=== PATIENT | female | born 1995 | race African-American/Black ===

== ENCOUNTER 2018-04-26 00:10 | Inpatient (IN) | payer OTHER ==
[~2018-04-26] VITALS: Ht 162.6 cm; Wt 67.1 kg
[2018-04-26] VITALS (11 sets, daily range): BP systolic 93–112; BP diastolic 50–68
[2018-04-26 00:56] LABS: BASO # 0.1 x10^3/uL (0.0-0.2); BASO % 1 % (0-3); EOS % 0 % (0-3); HEMATOCRIT 38.5 % (36.0-47.0); HEMOGLOBIN 13.7 g/dL (12.0-15.5); LYMPH # 1.9 x10^3/uL (1.0-4.8); LYMPH % 16 % (24-48); MEAN CORPUSCULAR HEMOGLOBIN 32 pg (25-35); MEAN CORPUSCULAR HGB CONC 36 g/dL (31-37); MEAN CORPUSCULAR VOLUME 91 fL (79-100); MONO # 0.8 x10^3/uL (0.0-1.1); MONO % 7 % (0-9); NEUT # 9.2 x10^3uL (1.8-7.7); NEUT % 76 % (31-73); PLATELET COUNT 306 x10^3/uL (140-400); RED BLOOD COUNT 4.25 x10^6/uL (3.50-5.40); RED CELL DISTRIBUTION WIDTH 12.7 % (11.5-14.5); WHITE BLOOD COUNT 12.1 x10^3/uL (4.0-11.0)
[2018-04-26] MEDS ORDERED: IV NORMAL SALINE 1000ML BAG 1,000 ML IV SCH (01:00)
[2018-04-26 01:07] LABS: CREATININE 0.8 mg/dL (0.6-1.0); GFR 105.8; POTASSIUM 3.8 mmol/L (3.5-5.1)
[2018-04-26 01:13] LABS: ALBUMIN 3.9 g/dL (3.4-5.0); ALBUMIN/GLOBULIN RATIO 1.1 (1.0-1.7); TOTAL BILIRUBIN 0.4 mg/dL (0.2-1.0); TOTAL PROTEIN 7.4 g/dL (6.4-8.2)
--- NOTE | 2018-04-26 01:45 | PHYS DOC ---
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 Patient reportedly has been having intermittent pelvic pain with vaginal bleeding for the last 3 weeks and has only found out that she is tonight. Patient had an ultrasound over at [facility] demonstrating a right-sided pelvic mass measuring 2.7 x 2.4 x 2 cm. Physician at [facility] had consulted with Dr. Mera on for OB and Dr. Mera requested the patient come to the emergency room. Patient states that pain today has been constant and she rates it at a 6 out of 10. She denies any nausea , vomiting or diarrhea. She also denies any fever and has had no urinary discomfort. Review of Systems Review of Systems Constitutional: Denies fever or chills [] Respiratory: Denies cough or shortness of breath [] Cardiovascular: No additional information not addressed in HPI [] GI: Complains of right lower abdominal pain[] : Denies dysuria or hematuria [] All other systems were reviewed and found to be within normal limits, except as documented in this note. Current Medications Current Medications Current Medications Medications (Trade) Dose Ordered Sig/Darleen Start Time Stop Time Status Last Admin Dose Admin Sodium Chloride 1,000 ml @ 100 mls/hr Q10H 04/26/18 01:00 04/26/18 10:59 04/26/18 01:05 100 MLS/HR Allergies Allergies Allergies Coded Allergies Type Severity Reaction Last Updated Verified amoxicillin Allergy Intermediate 04/26/18 Yes Physical Exam Physical Exam Constitutional: Well developed, well nourished, no acute distress, non-toxic appearance. [] HENT: Normocephalic, atraumatic, bilateral external ears normal, oropharynx moist, no oral exudates, nose normal. [] Eyes: PERRLA, EOMI, conjunctiva normal, no discharge. [] Neck: Normal range of motion, no tenderness, supple. [] Cardiovascular: Regular rate and rhythm[] Lungs & Thorax: Bilateral breath sounds clear to auscultation [] Abdomen: Bowel sounds normal, soft, with right lower tenderness. [] Skin: Warm, dry, no erythema, no rash. [] Back: No tenderness, no CVA tenderness. [] Extremities: No tenderness, no cyanosis, no clubbing, ROM intact, no edema. [] Neurologic: Alert and oriented X 3, normal motor function, normal sensory function, no focal deficits noted. [] Psychologic: Affect normal, judgement normal, mood normal. [] Current Patient Data Vital Signs Vital Signs Date Time Temp Pulse Resp B/P (MAP) Pulse Ox O2 Delivery O2 Flow Rate FiO2 04/26/18 00:10 98.9 94 20 126/97 (107) 99 Room Air 98.9 Lab Values Laboratory Tests Test 04/26/18 00:42 White Blood Count 12.1 x10^3/uL (4.0-11.0) H Red Blood Count 4.25 x10^6/uL (3.50-5.40) Hemoglobin 13.7 g/dL (12.0-15.5) Hematocrit 38.5 % (36.0-47.0) Mean Corpuscular Volume 91 fL (79-100) Mean Corpuscular Hemoglobin 32 pg (25-35) Mean Corpuscular Hemoglobin Concent 36 g/dL (31-37) Red Cell Distribution Width 12.7 % (11.5-14.5) Platelet Count 306 x10^3/uL (140-400) Neutrophils (%) (Auto) 76 % (31-73) H Lymphocytes (%) (Auto) 16 % (24-48) L Monocytes (%) (Auto) 7 % (0-9) Eosinophils (%) (Auto) 0 % (0-3) Basophils (%) (Auto) 1 % (0-3) Neutrophils # (Auto) 9.2 x10^3uL (1.8-7.7) H Lymphocytes # (Auto) 1.9 x10^3/uL (1.0-4.8) Monocytes # (Auto) 0.8 x10^3/uL (0.0-1.1) Eosinophils # (Auto) 0.0 x10^3/uL (0.0-0.7) Basophils # (Auto) 0.1 x10^3/uL (0.0-0.2) Maternal Serum HCG Beta Subunit 524 mIU/mL (0-5) H Sodium Level 138 mmol/L (136-145) Potassium Level 3.8 mmol/L (3.5-5.1) Chloride Level 103 mmol/L (98-107) Carbon Dioxide Level 27 mmol/L (21-32) Anion Gap 8 (6-14) Blood Urea Nitrogen 9 mg/dL (7-20) Creatinine 0.8 mg/dL (0.6-1.0) Estimated GFR (Cockcroft-Gault) 105.8 BUN/Creatinine Ratio 11 (6-20) Glucose Level 87 mg/dL (70-99) Calcium Level 9.0 mg/dL (8.5-10.1) Total Bilirubin 0.4 mg/dL (0.2-1.0) Aspartate Amino Transferase (AST) 17 U/L (15-37) Alanine Aminotransferase (ALT) 19 U/L (14-59) Alkaline Phosphatase 50 U/L (46-116) Total Protein 7.4 g/dL (6.4-8.2) Albumin 3.9 g/dL (3.4-5.0) Albumin/Globulin Ratio 1.1 (1.0-1.7) Laboratory Tests 04/26/18 00:42 Laboratory Tests 04/26/18 00:42 EKG EKG [] Radiology/Procedures Radiology/Procedures [] Course & Med Decision Making Course & Med Decision Making Pertinent Labs and Imaging studies reviewed. (See chart for details) [] Dragon Disclaimer Dragon Disclaimer This electronic medical record was generated, in whole or in part, using a voice recognition dictation system. Departure Departure Impression: Primary Impression: Ectopic Disposition: ADMITTED INPATIENT Admitting Physician: Other (Dr. Mera) Condition: GOOD Referrals: GARRETT JOHNS MD (PCP) Problem Qualifiers Primary Impression: Ectopic Location of ectopic : unspecified location Intrauterine status: unspecified Qualified Codes: O00.90 - Unspecified ectopic without intrauterine ALVA COX Jr. DO Apr 26, 2018 01:45
[2018-04-26] MEDS ORDERED: MORPHINE SULFATE 2 MG/ML VIAL. IV PRN (02:15)
[2018-04-26] MEDS ORDERED: ONDANSETRON PF 4 MG/2 ML VIAL. IV PRN ×2 (02:15→09:45)
[2018-04-26] MEDS ORDERED: MIDAZOLAM HCL/PF 2 MG/2 ML VIAL. ONE (09:19)
[2018-04-26] MEDS ORDERED: GLYCOPYRROLATE 1 MG/5 ML VIAL. ONE (09:19)
[2018-04-26] MEDS ORDERED: SEVOFLURANE > 120 MINUTES. IH ONE (09:19)
[2018-04-26] MEDS ORDERED: fentaNYL PF VIAL 100 MCG/2 ML VIAL ONE (09:19)
[2018-04-26] MEDS ORDERED: NEOSTIGMINE METHYLSULFATE 5 MG/5 ML SYRINGE. ONE (09:19)
[2018-04-26] MEDS ORDERED: SEVOFLURANE 61 TO 120 MINUTES. IH ONE (09:19)
[2018-04-26] MEDS ORDERED: ROCURONIUM 50 MG/5 ML VIAL. ONE (09:20)
[2018-04-26] MEDS ORDERED: DEXAMETHASONE SOD PHOS 20 MG/5 ML VIAL. ONE (09:20)
[2018-04-26] MEDS ORDERED: ONDANSETRON PF 4 MG/2 ML VIAL. ONE (09:20)
[2018-04-26] MEDS ORDERED: PROPOFOL 20 ML IV ONE (09:20)
[2018-04-26] MEDS ORDERED: KETOROLAC 30 MG/ML INJ FOR OR. INJ ONE (09:20)
[2018-04-26] MEDS ORDERED: LIDOCAINE 2% PF Vial for OR 5 ML VIAL. ONE (09:20)
--- NOTE | 2018-04-26 09:44 | HP ---
ADMIT DATE: 04/26/2018 HISTORY OF PRESENT ILLNESS: This patient is a 23-year-old white female who is a 1, para 0, LMP unknown, has been receiving Depo shot for control and she has stopped it. At the present time, she does not know her last menstrual period, but she does have a positive test and hCG levels were high. She was transferred from [facility] outpatient clinic to [facility] and admitted for possible ectopic on the right side. The patient complaining of acute pain in the right lower quadrant and also has vaginal bleeding for about 10 days. PHYSICAL EXAMINATION: VITAL SIGNS: Being stable. HEAD, EYES, NOSE, THROAT: Within normal limits. LUNGS: Clear. HEART: Sounds regular sinus rhythm. BREASTS: No masses are palpable. ABDOMEN: Feels soft. PELVIC: Shows external genitalia being normal. Cervical os is closed. On bimanual exam, uterus feels normal size. Left adnexal area is clear. The right adnexal area has fullness and also tenderness noted. EXTREMITIES: No edema of feet. IMPRESSION: Right lower quadrant pain, rule out right side ectopic . PLAN: Laparotomy. The surgery is explained to the patient and the patient is willing for the operation at the present time. JOHN SAWANT MD DR: MYESHA/sandro JOB#: [id number] / [id number]
[2018-04-26] MEDS ORDERED: fentaNYL PF VIAL 100 MCG/2 ML VIAL IV PRN (09:45)
[2018-04-26] MEDS ORDERED: LIDOCAINE 1% PF 2 ML VIAL. ID PRN (09:45)
[2018-04-26] MEDS ORDERED: SUCCINYLCHOLINE 200 MG/10 ML VIAL. ONE (09:49)
[2018-04-26] MEDS ORDERED: CLINDAMYCIN 900MG PREMIX 0 ML IV ONE (09:59)
[2018-04-26] MEDS ORDERED: CLINDAMYCIN 900MG PREMIX 50 ML IV SCH (10:00)
--- NOTE | 2018-04-26 10:09 | PDOC ---
GENERAL General: 23 yrs old lady admitted for Rt Lower Quadrant pain Possible Ectopic . HCG 500 Also patient has vaginal bleeding for 10 days VITAL SIGNS Vital Signs: Vital Signs Date Time Temp Pulse Resp B/P (MAP) Pulse Ox O2 Delivery O2 Flow Rate FiO2 04/26/18 09:00 98.2 78 16 106/66 (79) 99 Room Air 98.2 I & O I & O Intake and Output 04/26/18 07:00 Intake Total 384 ml Output Total 200 ml Balance 184 ml Intake Other 384 ml Output Urine Total 200 ml # Voids 1 ALLERGIES Allergies: Allergies Coded Allergies Type Severity Reaction Last Updated Verified amoxicillin Allergy Intermediate 04/26/18 Yes MEDS Medications: Current Medications Medications (Trade) Dose Ordered Sig/Darleen Start Time Stop Time Status Last Admin Dose Admin Clindamycin Phosphate 50 ml @ As Directed STK-MED ONCE 04/26/18 09:59 04/26/18 10:00 DC Dexamethasone Sodium Phosphate (Decadron) 20 mg STK-MED ONCE 04/26/18 09:20 04/26/18 09:21 DC Fentanyl Citrate (Fentanyl 2ml Vial) 50 mcg PRN Q5MIN PRN 04/26/18 09:45 04/26/18 18:00 Glycopyrrolate (Robinul) 1 mg STK-MED ONCE 04/26/18 09:19 04/26/18 09:20 DC Hydromorphone HCl (Dilaudid) 0.5 mg PRN Q10MIN PRN 04/26/18 09:45 04/26/18 18:00 Ketorolac Tromethamine (Toradol For Or Only) 30 mg STK-MED ONCE 04/26/18 09:20 04/26/18 09:21 DC Lidocaine HCl (Lidocaine Pf 2% Vial) 5 ml STK-MED ONCE 04/26/18 09:20 04/26/18 09:21 DC Lidocaine HCl (Xylocaine-Mpf 1% 2ml Vial) 2 ml 1X PRN PRN 04/26/18 09:45 04/26/18 09:50 DC Midazolam HCl (Versed) 2 mg STK-MED ONCE 04/26/18 09:19 04/26/18 09:20 DC Morphine Sulfate (Morphine Sulfate) 1 mg PRN Q10MIN PRN 04/26/18 09:45 04/26/18 18:00 Neostigmine Methylsulfate (Neostigmine Methylsulfate) 5 mg STK-MED ONCE 04/26/18 09:19 04/26/18 09:20 DC Ondansetron HCl (Zofran) 4 mg PRN Q6HRS PRN 04/26/18 09:45 04/26/18 18:00 Prochlorperazine Edisylate (Compazine) 5 mg PACU PRN PRN 04/26/18 09:45 04/26/18 18:00 Propofol 20 ml @ As Directed STK-MED ONCE 04/26/18 09:20 04/26/18 09:21 DC Ringer's Solution 1,000 ml @ 30 mls/hr Q24H 04/26/18 09:33 04/26/18 21:32 Rocuronium [place] (Zemuron) 50 mg STK-MED ONCE 04/26/18 09:20 04/26/18 09:21 DC Sevoflurane (Ultane) 60 ml STK-MED ONCE 04/26/18 09:19 04/26/18 09:20 DC Sodium Chloride 1,000 ml @ 100 mls/hr Q10H 04/26/18 01:00 04/26/18 10:59 04/26/18 01:05 100 MLS/HR Succinylcholine Chloride (Anectine) 200 mg STK-MED ONCE 04/26/18 09:49 04/26/18 09:51 DC LAB Lab: Laboratory Tests Test 04/26/18 00:42 White Blood Count 12.1 x10^3/uL (4.0-11.0) Red Blood Count 4.25 x10^6/uL (3.50-5.40) Hemoglobin 13.7 g/dL (12.0-15.5) Hematocrit 38.5 % (36.0-47.0) Mean Corpuscular Volume 91 fL (79-100) Mean Corpuscular Hemoglobin 32 pg (25-35) Mean Corpuscular Hemoglobin Concent 36 g/dL (31-37) Red Cell Distribution Width 12.7 % (11.5-14.5) Platelet Count 306 x10^3/uL (140-400) Neutrophils (%) (Auto) 76 % (31-73) Lymphocytes (%) (Auto) 16 % (24-48) Monocytes (%) (Auto) 7 % (0-9) Eosinophils (%) (Auto) 0 % (0-3) Basophils (%) (Auto) 1 % (0-3) Neutrophils # (Auto) 9.2 x10^3uL (1.8-7.7) Lymphocytes # (Auto) 1.9 x10^3/uL (1.0-4.8) Monocytes # (Auto) 0.8 x10^3/uL (0.0-1.1) Eosinophils # (Auto) 0.0 x10^3/uL (0.0-0.7) Basophils # (Auto) 0.1 x10^3/uL (0.0-0.2) Maternal Serum HCG Beta Subunit 524 mIU/mL (0-5) Sodium Level 138 mmol/L (136-145) Potassium Level 3.8 mmol/L (3.5-5.1) Chloride Level 103 mmol/L (98-107) Carbon Dioxide Level 27 mmol/L (21-32) Anion Gap 8 (6-14) Blood Urea Nitrogen 9 mg/dL (7-20) Creatinine 0.8 mg/dL (0.6-1.0) Estimated GFR (Cockcroft-Gault) 105.8 BUN/Creatinine Ratio 11 (6-20) Glucose Level 87 mg/dL (70-99) Calcium Level 9.0 mg/dL (8.5-10.1) Total Bilirubin 0.4 mg/dL (0.2-1.0) Aspartate Amino Transf (AST/SGOT) 17 U/L (15-37) Alanine Aminotransferase (ALT/SGPT) 19 U/L (14-59) Alkaline Phosphatase 50 U/L (46-116) Total Protein 7.4 g/dL (6.4-8.2) Albumin 3.9 g/dL (3.4-5.0) Albumin/Globulin Ratio 1.1 (1.0-1.7) ASSESSMENT & PLAN A&P Pelvic exam shows Rt side pelvic pain Has mild vaginal bleeding. Uterus feels normal size. Patient scheduled for Laparotomy and possible Rt salpingectomy. JOHN SAWANT MD Apr 26, 2018 10:09
[2018-04-26] MEDS ORDERED: CLINDAMYCIN 600MG PREMIX 50 ML IV SCH (10:15)
[2018-04-26] MEDS ORDERED: PHENYLEPHRINE in 0.9% NACL PF 1 MG/10 ML SYRINGE. IV ONE (10:34)
--- NOTE | 2018-04-26 11:07 | PDOC ---
GENERAL General: Under GA Laparotomy and Rt side Salpingectomy done. EBL 75cc. Rt side Tubal unruptured. VITAL SIGNS Vital Signs: Vital Signs Date Time Temp Pulse Resp B/P (MAP) Pulse Ox O2 Delivery O2 Flow Rate FiO2 04/26/18 09:45 98 90 20 110/62 99 Room Air 98.0 I & O I & O Intake and Output 04/26/18 07:00 Intake Total 384 ml Output Total 200 ml Balance 184 ml Other 384 ml Output Urine Total 200 ml # Voids 1 ALLERGIES Allergies: Allergies Coded Allergies Type Severity Reaction Last Updated Verified amoxicillin Allergy Intermediate 04/26/18 Yes MEDS Medications: Current Medications Medications (Trade) Dose Ordered Sig/Darleen Start Time Stop Time Status Last Admin Dose Admin Clindamycin Phosphate 50 ml @ 100 mls/hr 1X PREOP 04/26/18 10:15 Dexamethasone Sodium Phosphate (Decadron) 20 mg STK-MED ONCE 04/26/18 09:20 04/26/18 09:21 DC Fentanyl Citrate (Fentanyl 2ml Vial) 50 mcg PRN Q5MIN PRN 04/26/18 09:45 04/26/18 18:00 Glycopyrrolate (Robinul) 1 mg STK-MED ONCE 04/26/18 09:19 04/26/18 09:20 DC Hydromorphone HCl (Dilaudid) 0.5 mg PRN Q10MIN PRN 04/26/18 09:45 04/26/18 18:00 Ketorolac Tromethamine (Toradol For Or Only) 30 mg STK-MED ONCE 04/26/18 09:20 04/26/18 09:21 DC Lidocaine HCl (Lidocaine Pf 2% Vial) 5 ml STK-MED ONCE 04/26/18 09:20 04/26/18 09:21 DC Lidocaine HCl (Xylocaine-Mpf 1% 2ml Vial) 2 ml 1X PRN PRN 04/26/18 09:45 04/26/18 09:50 DC Midazolam HCl (Versed) 2 mg STK-MED ONCE 04/26/18 09:19 04/26/18 09:20 DC Morphine Sulfate (Morphine Sulfate) 1 mg PRN Q10MIN PRN 04/26/18 09:45 04/26/18 18:00 Neostigmine Methylsulfate (Neostigmine Methylsulfate) 5 mg STK-MED ONCE 04/26/18 09:19 04/26/18 09:20 DC Ondansetron HCl (Zofran) 4 mg PRN Q6HRS PRN 04/26/18 09:45 04/26/18 18:00 Phenylephrine HCl (PHENYLEPHRINE in 0.9% NACL PF) 1 mg STK-MED ONCE 04/26/18 10:34 04/26/18 10:35 DC Prochlorperazine Edisylate (Compazine) 5 mg PACU PRN PRN 04/26/18 09:45 04/26/18 18:00 Propofol 20 ml @ As Directed STK-MED ONCE 04/26/18 09:20 04/26/18 09:21 DC Ringer's Solution 1,000 ml @ 30 mls/hr Q24H 04/26/18 09:33 04/26/18 21:32 Rocuronium [place] (Zemuron) 50 mg STK-MED ONCE 04/26/18 09:20 04/26/18 09:21 DC Sevoflurane (Ultane) 60 ml STK-MED ONCE 04/26/18 09:19 04/26/18 09:20 DC Sodium Chloride 1,000 ml @ 100 mls/hr Q10H 04/26/18 01:00 04/26/18 10:59 DC 04/26/18 01:05 100 MLS/HR Succinylcholine Chloride (Anectine) 200 mg STK-MED ONCE 04/26/18 09:49 04/26/18 09:51 DC LAB Lab: Laboratory Tests Test 04/26/18 00:42 White Blood Count 12.1 x10^3/uL (4.0-11.0) Red Blood Count 4.25 x10^6/uL (3.50-5.40) Hemoglobin 13.7 g/dL (12.0-15.5) Hematocrit 38.5 % (36.0-47.0) Mean Corpuscular Volume 91 fL (79-100) Mean Corpuscular Hemoglobin 32 pg (25-35) Mean Corpuscular Hemoglobin Concent 36 g/dL (31-37) Red Cell Distribution Width 12.7 % (11.5-14.5) Platelet Count 306 x10^3/uL (140-400) Neutrophils (%) (Auto) 76 % (31-73) Lymphocytes (%) (Auto) 16 % (24-48) Monocytes (%) (Auto) 7 % (0-9) Eosinophils (%) (Auto) 0 % (0-3) Basophils (%) (Auto) 1 % (0-3) Neutrophils # (Auto) 9.2 x10^3uL (1.8-7.7) Lymphocytes # (Auto) 1.9 x10^3/uL (1.0-4.8) Monocytes # (Auto) 0.8 x10^3/uL (0.0-1.1) Eosinophils # (Auto) 0.0 x10^3/uL (0.0-0.7) Basophils # (Auto) 0.1 x10^3/uL (0.0-0.2) Maternal Serum HCG Beta Subunit 524 mIU/mL (0-5) Sodium Level 138 mmol/L (136-145) Potassium Level 3.8 mmol/L (3.5-5.1) Chloride Level 103 mmol/L (98-107) Carbon Dioxide Level 27 mmol/L (21-32) Anion Gap 8 (6-14) Blood Urea Nitrogen 9 mg/dL (7-20) Creatinine 0.8 mg/dL (0.6-1.0) Estimated GFR (Cockcroft-Gault) 105.8 BUN/Creatinine Ratio 11 (6-20) Glucose Level 87 mg/dL (70-99) Calcium Level 9.0 mg/dL (8.5-10.1) Total Bilirubin 0.4 mg/dL (0.2-1.0) Aspartate Amino Transf (AST/SGOT) 17 U/L (15-37) Alanine Aminotransferase (ALT/SGPT) 19 U/L (14-59) Alkaline Phosphatase 50 U/L (46-116) Total Protein 7.4 g/dL (6.4-8.2) Albumin 3.9 g/dL (3.4-5.0) Albumin/Globulin Ratio 1.1 (1.0-1.7) JOHN SAWANT MD Apr 26, 2018 11:07
[2018-04-26] MEDS ORDERED: ONDANSETRON ODT 4 MG TAB.RAPDIS. PO PRN (11:15)
[2018-04-26] MEDS: fentaNYL PF VIAL 100 MCG/2 ML VIAL IV PRN ×2 (11:31→11:54)
[2018-04-26] MEDS: PROCHLORPERAZINE 10 MG/2 ML VIAL. IV PRN ×2 (11:32→11:54)
[2018-04-26] MEDS: IV RINGERS,LACTATED 1000ML 1,000 ML IV SCH ×2 (11:32→12:16)
--- NOTE | 2018-04-26 11:39 | OP ---
DATE OF SURGERY: 04/26/2018 PREOPERATIVE DIAGNOSIS: Right lower quadrant pain, rule out ectopic . POSTOPERATIVE DIAGNOSES: Right lower quadrant pain, rule out ectopic with ruptured right side, tubal . OPERATION PERFORMED: Laparotomy, right side salpingectomy. DESCRIPTION OF PROCEDURE: The patient was taken to the operating room under general anesthesia. She was placed in a dorsal supine position. Ferrera catheter introduced in the bladder for continuous bladder drainage. Lower abdomen was prepped and draped in the usual manner. Pfannenstiel incision is made, abdomen opened in layers. Visualization of pelvic structures revealed a small amount of fluid and blood in the cul-de-sac and the right side tube is swollen and has the in the middle portion of the right side, tubal , occupying up to the fimbrial end and the mesosalpinx was ligated with a Amanda clamp and thus, the right side tube is removed along with the unruptured . The pedicles are doubly ligated with 0 chromic catgut sutures and after this, there was no oozing. Normal size uterus. Left tube and ovary appeared normal. Abdomen closed in layers using continuous 0 chromic catgut sutures for the peritoneum, the muscle, the fascia; 3-0 plain continuous sutures applied for subcutaneous tissue; 3-0 Vicryl subcutaneous sutures are placed. A pressure dressing is given. The patient sent to the recovery room in good condition. No complications encountered at the time of the procedure. Estimated blood loss about 75 mL. Postoperative condition is stable. JOHN SAWANT MD DR: MYESHA/sandro JOB#: [id number] / [id number]
[2018-04-26] MEDS: MORPHINE SULFATE 2 MG/ML VIAL. IV PRN ×2 (11:55→12:05)
[2018-04-26] MEDS: HYDROmorphone 2 MG/ML VIAL IV PRN ×2 (12:06→12:26)
[2018-04-26] MEDS: HYDROcodone/APAP 5/325MG 1 TAB TABLET PO PRN ×2 (13:53→19:39)
[2018-04-27] MEDS: HYDROcodone/APAP 5/325MG 1 TAB TABLET PO PRN ×4 (04:25→17:27)
[2018-04-27 06:02] VITALS: BP 100/51
[2018-04-27 09:37] VITALS: BP 98/59
--- NOTE | 2018-04-27 09:46 | PDOC ---
GENERAL General: Patient feeling better. Explained to patient about operative findings. VITAL SIGNS Vital Signs: Vital Signs Date Time Temp Pulse Resp B/P (MAP) Pulse Ox O2 Delivery O2 Flow Rate FiO2 04/27/18 09:42 16 Room Air 04/27/18 09:37 98.3 84 98/59 (72) 97 98.3 04/26/18 18:20 10.0 I & O I & O Intake and Output 04/27/18 07:00 Intake Total 3270 ml Output Total 710 ml Balance 2560 ml Intake Oral 1020 ml IV Total 2050 ml Other 200 ml Output Urine Total 635 ml Estimated Blood Loss 75 ml ALLERGIES Allergies: Allergies Coded Allergies Type Severity Reaction Last Updated Verified amoxicillin Allergy Intermediate 04/26/18 Yes MEDS Medications: Current Medications Medications (Trade) Dose Ordered Sig/Darleen Start Time Stop Time Status Last Admin Dose Admin Acetaminophen/ Hydrocodone Bitart (Lortab 5/325) 1 tab PRN Q4HRS PRN 04/26/18 11:15 04/27/18 09:42 1 TAB Clindamycin Phosphate 50 ml @ 100 mls/hr 1X PREOP 04/26/18 10:15 04/26/18 13:20 DC 04/26/18 11:34 100 MLS/HR Dexamethasone Sodium Phosphate (Decadron) 20 mg STK-MED ONCE 04/26/18 09:20 04/26/18 13:20 DC Fentanyl Citrate (Fentanyl 2ml Vial) 50 mcg PRN Q5MIN PRN 04/26/18 09:45 04/26/18 13:20 DC 04/26/18 11:54 50 MCG Glycopyrrolate (Robinul) 1 mg STK-MED ONCE 04/26/18 09:19 04/26/18 13:21 DC Hydromorphone HCl (Dilaudid) 0.5 mg PRN Q10MIN PRN 04/26/18 09:45 04/26/18 18:00 DC 04/26/18 12:26 0.5 MG Ketorolac Tromethamine (Toradol For Or Only) 30 mg STK-MED ONCE 04/26/18 09:20 04/26/18 13:20 DC Lidocaine HCl (Lidocaine Pf 2% Vial) 5 ml STK-MED ONCE 04/26/18 09:20 04/26/18 13:20 DC Lidocaine HCl (Xylocaine-Mpf 1% 2ml Vial) 2 ml 1X PRN PRN 04/26/18 09:45 04/26/18 09:50 DC Midazolam HCl (Versed) 2 mg STK-MED ONCE 04/26/18 09:19 04/26/18 13:20 DC Morphine Sulfate (Morphine Sulfate) 1 mg PRN Q10MIN PRN 04/26/18 09:45 04/26/18 13:21 DC 04/26/18 12:05 1 MG Neostigmine Methylsulfate (Neostigmine Methylsulfate) 5 mg STK-MED ONCE 04/26/18 09:19 04/26/18 13:20 DC Ondansetron HCl (Zofran Odt) 4 mg PRN Q6HRS PRN 04/26/18 11:15 04/26/18 13:21 DC Ondansetron HCl (Zofran) 4 mg PRN Q6HRS PRN 04/26/18 09:45 04/26/18 18:00 DC Phenylephrine HCl (PHENYLEPHRINE in 0.9% NACL PF) 1 mg STK-MED ONCE 04/26/18 10:34 04/26/18 13:20 DC Prochlorperazine Edisylate (Compazine) 5 mg PACU PRN PRN 04/26/18 09:45 04/26/18 13:21 DC 04/26/18 11:54 5 MG Propofol 20 ml @ As Directed STK-MED ONCE 04/26/18 09:20 04/26/18 13:20 DC Ringer's Solution 1,000 ml @ 30 mls/hr Q24H 04/26/18 09:33 04/26/18 21:32 DC 04/26/18 12:16 30 MLS/HR Rocuronium [place] (Zemuron) 50 mg STK-MED ONCE 04/26/18 09:20 04/26/18 13:20 DC Sevoflurane (Ultane) 60 ml STK-MED ONCE 04/26/18 09:19 04/26/18 13:21 DC Sodium Chloride 1,000 ml @ 100 mls/hr Q10H 04/26/18 01:00 04/26/18 10:59 DC 04/26/18 01:05 100 MLS/HR Succinylcholine Chloride (Anectine) 200 mg STK-MED ONCE 04/26/18 09:49 04/26/18 13:20 DC ASSESSMENT & PLAN A&P Abdomen soft. Incision healing ok. Patient can go home. Will see her in 2 weeks. JOHN SAWANT MD Apr 27, 2018 09:46
[2018-04-27 13:42] VITALS: BP 108/66
[2018-04-27 17:37] VITALS: BP 118/71
--- NOTE | 2018-04-27 18:07 | PATHOLOGY ---
[facility] Accession Number: [id number] . 01 Material submitted: . RIGHT FALLOPIAN TUBE AND INTACT ECTOPIC . 01 Clinical history: . Right lower quadrant pain, rule out right sided ectopic . . 02 Diagnosis: Fallopian tube, right salpingectomy: - Ectopic tubal . - Hematosalpinx. LBQ/04/27/2018 . 02 Comment: While there is prominent thinning of the fallopian tube wall, there is no evidence of rupture. (JPM/db; 04/27/2018) . 02 Electronically signed: . Que Gandhi MD, Pathologist NPI- [id number] . 01 Gross description: . Received in formalin labeled "Ilda House, right fallopian tube and intact ectopic " is a pink-ahuja fimbriated fallopian tube measuring 7.5 cm in length and 0.6 cm in diameter. Within the midportion of the tube there is a firm red-brown bulging area measuring 3.0 x 2.2 x 2.0 cm. The fallopian tube is sectioned to reveal a pinpoint lumen, which is dilated and filled with red-brown clotted blood at the previously described bulging area. Credit Correspondence Clerk sections of the specimen are submitted as follows: . 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 02 Pathologist provided ICD-10: O00.90, N83.6 . 02 CPT . 307013 Specimen Comment: A courtesy copy of this report has been sent to Specimen Comment: [phone], , . Specimen Comment: Report sent to ,DR JOHNS / DR COX Performed at: [address] [facility], [place], [place] [id number] MD Luciano Lee MD Phone: [phone] [facility]formed at: [facility] [address] [place], [place] [id number] MD Que Gandhi MD Phone: [phone]
== END 2018-04-27 17:50 | disposition home or self-care (01) | DRG 819 ==
LOC: ER 00:10 → 3 NORTH 02:10
PROVIDERS: ADMIT Obstetrics & Gynecology; ATTEND Obstetrics & Gynecology
PROC: 10T20ZZ Resection of Products of Conception, Ectopic, Open Approach (ICD-10-PCS; 2018-04-26)
PROC: 30233S1 Transfusion of Nonautologous Globulin into Peripheral Vein, Percutaneous Approach (ICD-10-PCS; 2018-04-26)
PROC: 0UB50ZZ Excision of Right Fallopian Tube, Open Approach (ICD-10-PCS; principal; 2018-04-26 09:30)
DX: O00.101 Right tubal pregnancy without intrauterine pregnancy (principal); Z88.0 Allergy status to penicillin
CPT/HCPCS: 36415; 80053; 84702; 85025; 86850; 86900; 86901; 96360; 96361; A7015; J0330; J0780; J1100; J1170; J1885; J2001; J2250; J2270; J2370; J2405; J2704; J2710; J2791; J3010; J3490; J7030; J7120; 99285-25; A4461